=== PATIENT | female | born 1970 | race Two or more races ===

== ENCOUNTER 2018-07-03 18:03 | Inpatient (IN) | payer BC, OTHER ==
[~2018-07-03] VITALS: Ht 160 cm; Wt 104.5 kg
[2018-07-03 18:52] LABS: Potassium 3.8 mmol/L (3.5-5.1)
[2018-07-03 18:54] LABS: Urine WBC None Seen /hpf (0 - 5)
[2018-07-03 18:57] LABS: Albumin 3.7 g/dL (3.4-5.0); Calcium 8.8 mg/dL (8.5-10.1)
[2018-07-03 18:59] LABS: BUN/Creatinine Ratio 15.8
[2018-07-03] MEDS ORDERED: MORPHINE SULFATE 4 MG/ML SYR/VIAL IV ONE ×2 (19:00→22:30)
[2018-07-03] MEDS ORDERED: ONDANSETRON HCL 4 MG/2 ML VIAL IV ONE (19:00)
[2018-07-03] MEDS ORDERED: SODIUM CHLORIDE 0.9% 1,000 ML IV ONE ×2 (19:00→22:30)
[2018-07-03 19:02] LABS: Bilirubin, Total 0.2 mg/dL (0.2-1.0); Total Protein 7.9 g/dL (6.4-8.2)
[2018-07-03 19:09] LABS: Basophils # (auto) 0.1 uL; Basophils % (auto) 0.9 % (0.0-2.0); Eosinophils # (auto) 0 uL; Eosinophils % (auto) 0.4 % (0.0-7.0); Hematocrit 43.3 % (36.0-46.0); Hemoglobin 14.5 g/dL (12.2-16.2); Lymphocytes # (auto) 2.1 uL; Lymphocytes % (auto) 18.2 % (10.0-50.0); Mean Corpuscular Hemoglobin 30.3 pg (28.0-32.0); Mean Corpuscular Hgb Conc. 33.5 g/dL (32.0-36.0); Mean Corpuscular Volume 90.4 fL (80.0-100.0); Monocytes # (auto) 0.6 uL; Monocytes % (auto) 5.3 % (0.0-12.0); Neutrophils # (auto) 8.9 uL; Neutrophils % (auto) 75.2 % (37.0-80.0); Platelet Count (auto) 343 10^3/uL (140-450); Red Blood Cells 4.79 10^6/uL (4.0-5.20); Red Cell Distribution Width 13.6 % (11.8-14.3); White Blood Cell 11.8 10^3/uL (4.4-10.8)
[2018-07-03 19:26] LABS: Urine Bacteria NONE SEEN /hpf (None Seen); Urine Blood Negative /uL (Negative); Urine Specific Gravity 1.026 (1.001-1.035)
[2018-07-03] MEDS ORDERED: LORazepam 2MG/ML-1ML VIAL IV ONE (20:45)
[2018-07-03] MEDS ORDERED: IOHEXOL 300 MG/ML 100ML BOTTLE IJ ONE ×2 (20:45→21:43)
[2018-07-03] MEDS ORDERED: cefTRIAXone 1GM/50ML D5W 50 ML IV ONE (22:30)
[2018-07-04] VITALS (7 sets, daily range): BP systolic 121–142; BP diastolic 73–87
[2018-07-04] MEDS ORDERED: HYDROmorphone HCL 2 MG/ML VL IV ONE
[2018-07-04] MEDS ORDERED: MORPHINE SULF INJ 2 MG/ML SYRINGE 1ML IV PRN (00:15)
[2018-07-04] MEDS: SODIUM CHLORIDE 0.9% 1,000 ML IV SCH ×2 (00:29→15:53)
[2018-07-04] MEDS: ONDANSETRON HCL 4 MG/2 ML VIAL IV PRN ×3 (01:16→20:01)
[2018-07-04] MEDS ORDERED: BENA10TA9 PO (03:01)
[2018-07-04] MEDS: metroNIDAZOLE 500MG/100ML 100 ML IV SCH ×3 (05:41→22:00)
[2018-07-04 06:06] LABS: Basophils # (auto) 0.1 uL; Basophils % (auto) 0.5 % (0.0-2.0); Eosinophils # (auto) 0 uL; Hematocrit 39.9 % (36.0-46.0); Lymphocytes % (auto) 7.7 % (10.0-50.0); Mean Corpuscular Hemoglobin 29.6 pg (28.0-32.0); Mean Corpuscular Hgb Conc. 32.7 g/dL (32.0-36.0); Mean Corpuscular Volume 90.7 fL (80.0-100.0); Monocytes # (auto) 0.7 uL; Monocytes % (auto) 5.1 % (0.0-12.0); Neutrophils # (auto) 11.3 uL; Neutrophils % (auto) 86.7 % (37.0-80.0); Platelet Count (auto) 277 10^3/uL (140-450); Red Cell Distribution Width 13.9 % (11.8-14.3); White Blood Cell 13.1 10^3/uL (4.4-10.8)
[2018-07-04 06:30] LABS: Calcium 8.2 mg/dL (8.5-10.1); Potassium 4.2 mmol/L (3.5-5.1)
[2018-07-04 06:32] LABS: BUN/Creatinine Ratio 11.3
[2018-07-04 08:47] LABS: INR 0.94 (0.9-1.15); Partial Thromboplastin Time 26.1 sec (23.78-33.04); Prothrombin Time 10.1 sec (9.27-12.13)
[2018-07-04] MEDS: FAMOTIDINE 20 MG TAB PO SCH ×2 (10:00→20:01)
[2018-07-04] MEDS ORDERED: HYDROmorphone HCL 2 MG/ML VL IV PRN ×3 (10:45→12:45)
[2018-07-04] MEDS ORDERED: LIDOCAINE 1% (LOCAL ANESTH.) PF 5ml SDV ONE (11:07)
[2018-07-04] MEDS ORDERED: ROCURONIUM 10MG/ML 10ML VIAL IV ONE (11:08)
[2018-07-04] MEDS ORDERED: ceFAZolin 1GM/50ML 50 ML IV ONE (12:04)
[2018-07-04] MEDS ORDERED: METOCLOPRAMIDE HCL 5MG/ml INJ 2ml VIAL ONE (12:33)
[2018-07-04] MEDS ORDERED: MIDAZOLAM HCL 1MG/1ML-2 ML VIAL ONE (12:33)
[2018-07-04] MEDS ORDERED: PROPOFOL 10 MG/ML 20 ML IV ONE (12:34)
[2018-07-04] MEDS ORDERED: fentaNYL CITRATE 100 MCG/2 ML VL ONE (12:42)
[2018-07-04] MEDS ORDERED: NALOXONE HCL 0.4 MG/ML VIAL IV PRN (12:45)
[2018-07-04] MEDS ORDERED: ONDANSETRON HCL 4 MG/2 ML VIAL IV ONE (12:45)
[2018-07-04] MEDS ORDERED: KETOROLAC TROMETH 30 MG/ML 1ML VIAL ONE (13:11)
[2018-07-04] MEDS ORDERED: GLYCOPYRROLATE 0.2 MG/ML 1ML VIAL ONE (13:12)
[2018-07-04] MEDS ORDERED: NEOSTIGMINE 1 MG/ML INJ (10mg/10ML VIAL) ONE (13:12)
[2018-07-04] MEDS: HYDROmorphone HCL 2 MG/ML VL IV PRN (20:01)
[2018-07-04] MEDS: cefTRIAXone 1GM/50ML D5W 50 ML IV SCH (20:01)
[2018-07-05] MEDS: SODIUM CHLORIDE 0.9% 1,000 ML IV SCH ×2 (02:55→16:15)
[2018-07-05] MEDS: ONDANSETRON HCL 4 MG/2 ML VIAL IV PRN ×3 (04:14→19:51)
[2018-07-05] MEDS: HYDROmorphone HCL 2 MG/ML VL IV PRN ×3 (04:14→19:51)
[2018-07-05 05:00] VITALS: BP 124/77
[2018-07-05] MEDS: metroNIDAZOLE 500MG/100ML 100 ML IV SCH ×3 (05:15→21:49)
[2018-07-05 06:24] LABS: Basophils # (auto) 0 uL; Basophils % (auto) 0.4 % (0.0-2.0); Eosinophils # (auto) 0 uL; Hematocrit 37.4 % (36.0-46.0); Hemoglobin 12.6 g/dL (12.2-16.2); Lymphocytes # (auto) 1.7 uL; Lymphocytes % (auto) 13.2 % (10.0-50.0); Mean Corpuscular Hemoglobin 30.6 pg (28.0-32.0); Mean Corpuscular Hgb Conc. 33.7 g/dL (32.0-36.0); Mean Corpuscular Volume 90.9 fL (80.0-100.0); Monocytes # (auto) 0.8 uL; Monocytes % (auto) 6.6 % (0.0-12.0); Neutrophils # (auto) 10.1 uL; Neutrophils % (auto) 79.8 % (37.0-80.0); Nucleated Red Blood Cells % 0.1 %; Platelet Count (auto) 274 10^3/uL (140-450); Red Blood Cells 4.11 10^6/uL (4.0-5.20); Red Cell Distribution Width 13.6 % (11.8-14.3); White Blood Cell 12.6 10^3/uL (4.4-10.8)
[2018-07-05 06:41] LABS: BUN/Creatinine Ratio 11.4; Calcium 8.1 mg/dL (8.5-10.1); Potassium 3.4 mmol/L (3.5-5.1)
[2018-07-05 08:00] VITALS: BP 115/72
[2018-07-05] MEDS: FAMOTIDINE 20 MG TAB PO SCH ×2 (09:56→21:49)
[2018-07-05 11:26] VITALS: BP 152/84
[2018-07-05] MEDS ORDERED: POTASSIUM CHLORIDE 20 MEQ, LIDOCAINE 1% (LOCAL ANESTH.) 2 ML in SODIUM CHL 0.9% 100 ML IV ONE (14:30)
[2018-07-05] MEDS: ACETAMINOPHEN 500 MG TAB PO PRN (17:03)
[2018-07-05] MEDS: cefTRIAXone 1GM/50ML D5W 50 ML IV SCH (21:49)
[2018-07-05 22:00] VITALS: BP 139/91
[2018-07-06] MEDS: SODIUM CHLORIDE 0.9% 1,000 ML IV SCH ×2 (01:14→18:55)
[2018-07-06] MEDS ORDERED: cloNIDine HCL 0.1 MG TAB PO ONE (04:30)
[2018-07-06 05:00] VITALS: BP 159/102
[2018-07-06] MEDS: metroNIDAZOLE 500MG/100ML 100 ML IV SCH ×3 (05:19→22:40)
[2018-07-06 06:25] LABS: Calcium 8.1 mg/dL (8.5-10.1); Potassium 3.5 mmol/L (3.5-5.1)
[2018-07-06 06:27] LABS: Basophils # (auto) 0.1 uL; Basophils % (auto) 0.6 % (0.0-2.0); Eosinophils # (auto) 0 uL; Eosinophils % (auto) 0.5 % (0.0-7.0); Hematocrit 36.2 % (36.0-46.0); Hemoglobin 12.2 g/dL (12.2-16.2); Lymphocytes # (auto) 1.2 uL; Lymphocytes % (auto) 14.4 % (10.0-50.0); Mean Corpuscular Hemoglobin 30.5 pg (28.0-32.0); Mean Corpuscular Hgb Conc. 33.6 g/dL (32.0-36.0); Mean Corpuscular Volume 90.9 fL (80.0-100.0); Monocytes # (auto) 0.6 uL; Monocytes % (auto) 6.9 % (0.0-12.0); Neutrophils # (auto) 6.6 uL; Neutrophils % (auto) 77.6 % (37.0-80.0); Nucleated Red Blood Cells % 0.1 %; Platelet Count (auto) 264 10^3/uL (140-450); Red Blood Cells 3.99 10^6/uL (4.0-5.20); Red Cell Distribution Width 13.9 % (11.8-14.3); White Blood Cell 8.5 10^3/uL (4.4-10.8)
[2018-07-06 08:47] VITALS: BP 152/89
[2018-07-06] MEDS: FAMOTIDINE 20 MG TAB PO SCH ×2 (09:44→21:42)
[2018-07-06 11:23] VITALS: BP 156/92
[2018-07-06] MEDS: ONDANSETRON HCL 4 MG/2 ML VIAL IV PRN (11:44)
[2018-07-06] MEDS: HYDROmorphone HCL 2 MG/ML VL IV PRN (11:44)
[2018-07-06] MEDS ORDERED: BENAZEPRIL HCL 10 MG TAB PO ONE (12:15)
[2018-07-06] MEDS ORDERED: KETOROLAC TROMETH 30 MG/ML 1ML VIAL IV PRN (12:45)
[2018-07-06] MEDS ORDERED: hydrALAZINE HCL 20 MG/ML VL IV PRN (12:45)
[2018-07-06] MEDS ORDERED: PROMETHAZINE HCL 25 MG/ML 1ML IV PRN (12:45)
[2018-07-06] MEDS: ACETAMINOPHEN 500 MG TAB PO PRN (15:42)
[2018-07-06 16:16] VITALS: BP 154/94
[2018-07-06] MEDS: cefTRIAXone 1GM/50ML D5W 50 ML IV SCH (21:41)
[2018-07-06 22:00] VITALS: BP 138/84
[2018-07-07 05:01] VITALS: BP 145/89
[2018-07-07] MEDS: ACETAMINOPHEN 500 MG TAB PO PRN (05:34)
[2018-07-07] MEDS: metroNIDAZOLE 500MG/100ML 100 ML IV SCH (06:20)
[2018-07-07] MEDS: SODIUM CHLORIDE 0.9% 1,000 ML IV SCH (06:45)
[2018-07-07 08:22] VITALS: BP 156/98
[2018-07-07] MEDS: FAMOTIDINE 20 MG TAB PO SCH (09:52)
[2018-07-07] MEDS ORDERED: BENAZEPRIL HCL 10 MG TAB PO SCH (10:00)
[2018-07-07 11:46] VITALS: BP 156/98
== END 2018-07-07 12:30 | disposition home or self-care (01) | DRG 342 ==
LOC: ER 18:10 → CENTRAL 07-04 00:08 → WEST WING 07-04 01:12
PROVIDERS: ADMIT Nurse Practitioner Family; ATTEND Internal Medicine
PROC: 0DTJ4ZZ Resection of Appendix, Percutaneous Endoscopic Approach (ICD-10-PCS; principal; 2018-07-04 12:30)
DX: K35.80 Unspecified acute appendicitis (principal); J98.11 Atelectasis; Z68.41 Body mass index [BMI] 40.0-44.9, adult; E66.01 Morbid (severe) obesity due to excess calories; E87.6 Hypokalemia; I10 Essential (primary) hypertension; K42.9 Umbilical hernia without obstruction or gangrene; K76.0 Fatty (change of) liver, not elsewhere classified; G89.29 Other chronic pain; M54.5 Low back pain; E86.0 Dehydration; G47.33 Obstructive sleep apnea (adult) (pediatric); K21.9 Gastro-esophageal reflux disease without esophagitis; Z90.710 Acquired absence of both cervix and uterus
CPT/HCPCS: 36415; 71045; 74177; 80048; 80053; 81001; 81025; 82150; 83690; 85025; 85610; 85730; 86850; 86900; 86901; 87040; 93005; 96361; 96365; 96375; 96376; A6257; G0378; J0690; J0696; J1885; J2001; J2250; J2405; J2704; J3490